=== PATIENT | female | born 1995 | race Caucasian/White ===

== ENCOUNTER 2016-11-15 21:54 | Emergency (ER) | payer BC ==
[2016-11-15 22:00] VITALS: BP 127/77
--- NOTE | 2016-11-15 23:23 | UC ---
Eye Complaint HPI - HPI Summary HPI Summary: ONSET OF LEFT EYE REDNESS AND IRRITATION AT 1PM TODAY. WEARS CONTACTS AND SOMETIMES SLEEPS WITH THEM IN. TOOK HER LENSES OUT ABOUT 6PM WITH NO IMPROVEMENT IN SX. DENIES ANY VISUAL DISTURBANCE OR FB SENSATION. NO PAIN WITH EOM. - History of Current Complaint Chief Complaint: UCEye Stated Complaint: EYE COMPLAINT Time Seen by Provider: 11/15/16 23:16 Hx Obtained From: Patient Hx Last Menstrual Period: 11/11/16 Onset/Duration: Gradual Onset, Lasting Hours, Still Present Timing: Constant Severity Initially: Moderate Severity Currently: Moderate Pain Intensity: 6 Pain Scale Used: 0-10 Numeric Location of Injury: Eye Lid (upper) - LEFT Character: Dull Aggravating Factor(s): Other - TOUCH Alleviating Factor(s): Nothing Associated Signs And Symptoms: Positive: Drainage (Clear). Negative: Drainage ( Purulent), Vision Impairment Bilateral, Vision Impairment Right, Vision Impairment Left, Fever - Allergies/Home Medications Allergies/Adverse Reactions: Allergies Allergy/AdvReac Type Severity Reaction Status Date / Time Penicillins Allergy Hives/Diff. Verified 11/15/16 22:00 Breathing/I tching Home Medications: Home Medications Albuterol HFA INHALER* [Ventolin HFA Inhaler*] 1 puff INH Q4H PRN 11/15/16 [ History Confirmed 11/15/16] Ferrous Sulfate [Iron (Ferrous Sulfate)] 50 mg PO 11/15/16 [History] PMH/Surg Hx/FS Hx/Imm Hx Respiratory History: Asthma - Surgical History Surgical History: None - Family History Known Family History: Positive: Hypertension, Diabetes - Social History Alcohol Use: Rare Substance Use Type: None Smoking Status (MU): Never Smoked Tobacco Review of Systems Constitutional: Negative Eyes: Drainage, Other - EYELID SWELLING, IRRITATION Respiratory: Negative Cardiovascular: Negative Gastrointestinal: Negative All Other Systems Reviewed And Are Negative: Yes Physical Exam Triage Information Reviewed: Yes Appearance: Well-Appearing, No Pain Distress, Well-Nourished Vital Signs: Initial Vital Signs Temp 97.9 F 11/15/16 21:56 Pulse 52 11/15/16 21:56 Resp 16 11/15/16 21:56 BP 127/77 11/15/16 21:56 Pulse Ox 100 11/15/16 21:56 Vital Signs Reviewed: Yes Eyes: Positive: Conjunctiva Clear, Other: - LEFT UPPER EYELID EDEMATOUS AND TENDER. NO DISTINCT NODULE. Negative: Discharge ENT: Positive: Hearing grossly normal Neck: Positive: Supple, Nontender, No Lymphadenopathy Respiratory: Positive: No respiratory distress, No accessory muscle use Cardiovascular: Positive: Pulses Normal Musculoskeletal: Positive: No Edema Neurological: Positive: Alert Psychological: Positive: Age Appropriate Behavior Skin: Negative: rashes Eye Complaint Course/Dx - Differential Dx/Diagnosis Provider Diagnoses: BLEPHARITIS - LEFT EYE Discharge - Discharge Plan Condition: Stable Disposition: HOME Prescriptions: Erythromycin OPHTH.OINT* [Ilotycin OPHTH.OINT*] 1 applic BOTH EYES QID #1 tube Patient Education Materials: Blepharitis (ED) Referrals: Bryan Villalobos MD [Medical Doctor] - Additional Instructions: BLEPHARITIS What is blepharitis? Blepharitis is inflammation of the eyelids that causes redness and swelling of the lids. The symptoms might get better and then come back. But blepharitis rarely causes problems with your vision. Blepharitis is more common in people who have certain skin conditions, including : Rosacea - This causes redness and raised, red bumps on the cheeks, nose, chin, forehead, or eyelids. Seborrhea This causes redness, scaly patches, and itching, mostly on the scalp. Dandruff is a mild form of seborrhea. What are the symptoms of blepharitis? The symptoms include: Eyelids that are red, swollen, and itchy A gritty or burning feeling in the eyes Red eyes Crusty, matted eyelashes in the morning Flaking or scaling of the eyelid skin Is there a test for blepharitis? No. There is no test. But your doctor or nurse should be able to tell if you have it by learning about your symptoms and doing an exam. Is there anything I can do on my own to feel better? Yes. You can: Put warm, wet pressure on your eyes Wet a clean wash cloth with warm (not scalding hot) water and put it over your eyes. When the wash cloth cools, reheat it with warm water and put it back over your eyes. Repeat these steps for 5 minutes, 2 to 4 times a day. Gently rub your eyelids Do this right after putting warm, wet pressure on your eyes (see above). Use the washcloth or a clean fingertip to gently rub your eyelid in small circles. Wash your eyelids Use plain warm water or warm water with a drop of baby shampoo on a clean washcloth, gauze pad, or cotton swab. Gently clean any crusty material off the eyelashes and eyelids. Do not rub hard or you can cause more irritation. You can also use [id number] eyelid scrubs and pads. How is blepharitis treated? If the treatments you do on your own do not help, your doctor might prescribe: An antibiotic cream or ointment to put on your eyelids Antibiotic pills NO CONTACTS OR EYE MAKE-UP UNTIL SYMPTOMS ARE RESOLVED. NEVER SLEEP WITH YOUR CONTACTS IN. IF YOUR SYMPTOMS ARE NOT IMPROVING OVER THE NEXT WEEK OR SO FOLLOW-UP WITH AN EYE DOCTOR.
== END 2016-11-15 23:35 | disposition home or self-care (01) ==
LOC: UCEAST 21:54
DX: H01.004 Unspecified blepharitis left upper eyelid (principal); J45.909 Unspecified asthma, uncomplicated
CPT/HCPCS: 99202; G0463